=== PATIENT | female | born 1990 | race Two or more races ===

== ENCOUNTER 2024-07-10 09:52 | Emergency (ER) | payer OTHER ==
[~2024-07-10] VITALS: Ht 160 cm; Wt 51.3 kg
[2024-07-10] MEDS ORDERED: AMPH5CAP PO (10:03)
[2024-07-10] MEDS ORDERED: VENL37.55 PO (10:03)
[2024-07-10] MEDS ORDERED: diphenhydrAMINE 50 MG/1 ML VIAL ONE (10:31)
[2024-07-10] MEDS ORDERED: METOCLOPRAMIDE HCL 10 MG/2 ML VIAL ONE (10:31)
[2024-07-10 10:56] LABS: BASOPHILS % (AUTO) 0.8 % (0.0-2.0); EOSINOPHILS % (AUTO) 0.6 % (0.0-7.0); HEMATOCRIT 42.9 % (31.2-41.9); HEMOGLOBIN 15.2 g/dL (10.9-14.3); LYMPHOCYTES # (AUTO) 0.9 K/uL (0.8-4.8); MEAN CORPUSCULAR HEMOGLOBIN 34.7 uug (24.7-32.8); MEAN CORPUSCULAR HGB CONC 35 g/dL (32.3-35.6); MEAN CORPUSCULAR VOLUME 97.9 fL (75.5-95.3); MONOCYTES # (AUTO) 0.5 K/uL (0.1-1.30); MONOCYTES % (AUTO) 8.2 % (0.0-11.0); NEUTROPHILS # (AUTO) 4.1 K/uL (1.8-8.9); NEUTROPHILS % (AUTO) 73.4 % (38.5-71.5); PLATELET COUNT (AUTO) 209 K/uL (179-408); RED BLOOD CELL COUNT(AUTO) 4.38 MIL/uL (3.63-4.92); RED CELL DISTRIBUTION WIDTH 12.3 % (12.3-17.7); WHITE BLOOD COUNT (AUTO) 5.5 K/uL (3.8-11.8)
[2024-07-10 10:58] LABS: DIFFERENTIAL COMMENT 1
[2024-07-10] MEDS: IV NORMAL SALINE 1000 ML BAG IV ONE (11:03)
[2024-07-10] MEDS: METOCLOPRAMIDE HCL 10 MG/2 ML VIAL IV ONE (11:03)
[2024-07-10] MEDS: diphenhydrAMINE 50 MG/1 ML VIAL IV ONE (11:03)
[2024-07-10 11:35] LABS: CALCIUM 9.2 mg/dL (8.5-10.1); CREATININE 0.7 mg/dL (0.6-1.3); POTASSIUM 3.8 mmol/L (3.5-5.1)
[2024-07-10 11:41] LABS: ALBUMIN 3.3 g/dL (3.4-5.0); BILIRUBIN,DIRECT 0.2 mg/dL (0.0-0.2); BILIRUBIN,TOTAL 0.6 mg/dL (0.2-1.0); TOTAL PROTEIN, SERUM 8.2 g/dL (6.4-8.2)
[2024-07-10] MEDS ORDERED: LOPE1LIQ56 PO (12:58)
[2024-07-10] MEDS ORDERED: METO-295 PO (12:58)
[2024-07-10] MEDS ORDERED: DIPH1TAB PO (12:58)
[2024-07-10 13:11] VITALS: BP 111/68; O2SAT 100
== END 2024-07-10 13:12 | disposition home or self-care (01) ==
LOC: ER 09:52
DX: R11.2 Nausea with vomiting, unspecified (principal); R19.7 Diarrhea, unspecified; R42 Dizziness and giddiness; R10.9 Unspecified abdominal pain; F32.A Depression, unspecified; F41.9 Anxiety disorder, unspecified; F90.9 Attention-deficit hyperactivity disorder, unspecified type; Z79.899 Other long term (current) drug therapy; Z91.148 Patient's other noncompliance with medication regimen for other reason
CPT/HCPCS: 99284; 96374; 96361; 96375; 80076; 80048; 83690; 85025; 36415; J1200; J2765; J7040; A4606; A4663